=== PATIENT | female | born 1960 | race African-American/Black ===

== ENCOUNTER 2017-11-08 17:51 | Emergency (ER) | payer OTHER | END 2017-11-08 20:17 | disposition home or self-care (01) | LOC: ER 17:51 | DX: J20.9 Acute bronchitis, unspecified (principal); J39.9 Disease of upper respiratory tract, unspecified; E78.00 Pure hypercholesterolemia, unspecified | CPT/HCPCS: 71046; 99284 ==

== ENCOUNTER 2020-06-24 14:23 | Observation (INO) | payer SELFPAY ==
[~2020-06-24] VITALS: Ht 172.7 cm; Wt 70.0 kg
[~2020-06-24 14:23] MED LIST: AMLO5TAB10 PO; AZIT250T PO; BENZ100C PO; PRED50TA PO; PROAIR RESPICL90 MCG IH
[2020-06-24] MEDS ORDERED: ASPIRIN 325 MG TABLET PO ONE (15:15)
[2020-06-24 15:16] LABS: BASO # 0.2 x10^3/uL (0.0-0.2); BASO % 3 % (0-3); EOS # 0.1 x10^3/uL (0.0-0.7); EOS % 1 % (0-3); HEMATOCRIT 34.3 % (36.0-47.0); HEMOGLOBIN 11.6 g/dL (12.0-15.5); LYMPH # 2.4 x10^3/uL (1.0-4.8); LYMPH % 38 % (24-48); MEAN CORPUSCULAR HEMOGLOBIN 31 pg (25-35); MEAN CORPUSCULAR HGB CONC 34 g/dL (31-37); MEAN CORPUSCULAR VOLUME 92 fL (79-100); MONO # 0.3 x10^3/uL (0.0-1.1); MONO % 5 % (0-9); NEUT # 3.4 x10^3/uL (1.8-7.7); NEUT % 54 % (31-73); PLATELET COUNT 146 x10^3/uL (140-400); RED BLOOD COUNT 3.73 x10^6/uL (3.50-5.40); RED CELL DISTRIBUTION WIDTH 18.7 % (11.5-14.5); WHITE BLOOD COUNT 6.3 x10^3/uL (4.0-11.0)
[2020-06-24 15:19] LABS: PROTHROMBIN TIME PATIENT 13.4 SEC (11.7-14.0)
[2020-06-24 15:22] LABS: D-DIMER 0.45 ug/mlFEU (0.00-0.50)
[2020-06-24 15:25] LABS: CALCIUM 9.4 mg/dL (8.5-10.1); GFR 68.9
[2020-06-24 15:28] LABS: ALBUMIN 3.9 g/dL (3.4-5.0); ALBUMIN/GLOBULIN RATIO 1.1 (1.0-1.7); MAGNESIUM 2.1 mg/dL (1.8-2.4); TOTAL BILIRUBIN 0.2 mg/dL (0.2-1.0); TOTAL PROTEIN 7.5 g/dL (6.4-8.2)
[2020-06-24 15:38] LABS: CREATINE KINASE 73 U/L (26-192)
[2020-06-24 15:49] LABS: PLT ESTIMATE ADEQUATE (ADEQUATE)
[2020-06-24 15:50] LABS: POLYCHROMASIA SLIGHT; SCHISTOCYTES OCC
[2020-06-24 15:52] LABS: ANISOCYTOSIS SLIGHT
--- NOTE | 2020-06-24 15:52 | RAD ---
Chest AP portable at 1456: Reason for examination: Chest pain. Comparison is made to previous study dated 11/08/2017. The heart size is normal. Mediastinum is unremarkable. Lung ramesh are clear. No acute bony abnormalities are seen. Impression: No acute cardiopulmonary disease. Electronically signed by: Jaz Horner MD (06/24/2020 3:49 PM) TAMMI
--- NOTE | 2020-06-24 16:00 | PHYS DOC ---
Past Medical History Past Medical History: High Cholesterol, Hypertension, Sinusitis Additional Past Medical Histor: "SINUS PROBLEMS" NH Past Surgical History: Tubal ligation Smoking Status: Former Smoker Alcohol Use: None Drug Use: None General Adult EDM: Chief Complaint: CHEST PAIN HPI: HPI: Patient is a 60 year old AA female who presents to the emergency department wit h complaints of left-sided chest pain that began approximately 8:00 this morning. She currently denies any pain at this time. She reports a history of a previous NH. Patient states that when the pain was present it felt like a aching pain that radiated to the left side of her neck. She denies any shortness of breath, diaphoresis, nausea, vomiting, abdominal pain, wheezing, fever, dizziness, headache, numbness, tingling, weakness, or back pain. Patient reports that when she had the pain that was a 8 out of 10 on the pain scale, she denied any alleviating or exacerbating factors. Review of Systems: Review of Systems: Constitutional: Denies fever or chills. [] HENT: Denies nasal congestion or sore throat. [] Respiratory: Denies cough or shortness of breath. [] Cardiovascular: See HPI GI: Denies abdominal pain, nausea, vomiting, or diarrhea. [] Musculoskeletal: Denies back pain, edema, or joint pain. [] Integument: Denies rash. [] Neurologic: Denies headache, focal weakness or sensory changes. [] Psychiatric: Denies depression or anxiety. [] Heart Score: HEART Score for Chest Pain: HEART Score for Chest Pain Response (Comments) Value History Slighlty/Non-Suspicious 0 ECG Nonspecific Repolarizatio 1 Age >45 - < 65 1 Risk Factors >3 Risk Factors or Hx CAD 2 Troponin < Normal Limit 0 Total 4 Risk Factors: Risk Factors: DM, Current or recent (<one month) smoker, HTN, HLP, family history of CAD, obesity. Risk Scores: Score 0 - 3: 2.5% MACE over next 6 weeks - Discharge Home Score 4 - 6: 20.3% MACE over next 6 weeks - Admit for Clinical Observation Score 7 - 10: 72.7% MACE over next 6 weeks - Early Invasive Strategies Current Medications: Current Medications Medications (Trade) Dose Ordered Sig/[facility] Start Time Stop Time Status Last Admin Dose Admin Aspirin (Jb Aspirin) 325 mg 1X ONCE 06/24/20 15:15 06/24/20 15:16 DC 06/24/20 15:33 325 MG Allergies: Allergies: Allergies Coded Allergies Type Severity Reaction Last Updated Verified No Known Drug Allergies 06/20/15 No Physical Exam: PE: Constitutional: Well developed, well nourished, no acute distress, non-toxic appearance. [] HENT: Normocephalic, atraumatic, bilateral external ears normal, nose normal. [] Eyes: PERRLA, EOMI, conjunctiva normal, no discharge. [] Neck: Normal range of motion, no stridor. [] Cardiovascular:Heart rate regular rhythm, no murmur [] Lungs & Thorax: Bilateral breath sounds clear to auscultation, Respirations even and unlabored, no retractions, no respiratory distress [] Abdomen: soft, no tenderness Skin: Warm, dry, no erythema, no rash. [] Back: No tenderness Extremities: No cyanosis, ROM intact, no edema. [] Neurologic: Alert and oriented X 3, normal motor function, normal sensory function, no focal deficits noted. [] Psychologic: Affect normal, judgement normal, mood normal. [] Current Patient Data: Labs: Laboratory Tests Test 06/24/20 15:00 White Blood Count 6.3 x10^3/uL (4.0-11.0) Red Blood Count 3.73 x10^6/uL (3.50-5.40) Hemoglobin 11.6 g/dL (12.0-15.5) L Hematocrit 34.3 % (36.0-47.0) L Mean Corpuscular Volume 92 fL (79-100) Mean Corpuscular Hemoglobin 31 pg (25-35) Mean Corpuscular Hemoglobin Concent 34 g/dL (31-37) Red Cell Distribution Width 18.7 % (11.5-14.5) H Platelet Count 146 x10^3/uL (140-400) Neutrophils (%) (Auto) 54 % (31-73) Lymphocytes (%) (Auto) 38 % (24-48) Monocytes (%) (Auto) 5 % (0-9) Eosinophils (%) (Auto) 1 % (0-3) Basophils (%) (Auto) 3 % (0-3) Neutrophils # (Auto) 3.4 x10^3/uL (1.8-7.7) Lymphocytes # (Auto) 2.4 x10^3/uL (1.0-4.8) Monocytes # (Auto) 0.3 x10^3/uL (0.0-1.1) Eosinophils # (Auto) 0.1 x10^3/uL (0.0-0.7) Basophils # (Auto) 0.2 x10^3/uL (0.0-0.2) Platelet Estimate Adequate (ADEQUATE) Polychromasia Slight Anisocytosis Slight Schistocytes Occ Prothrombin Time 13.4 SEC (11.7-14.0) Prothrombin Time INR 1.1 (0.8-1.1) Activated Partial Thromboplast Time 33 SEC (24-38) D-Dimer (Monae) 0.45 ug/mlFEU (0.00-0.50) Sodium Level 139 mmol/L (136-145) Potassium Level 4.0 mmol/L (3.5-5.1) Chloride Level 105 mmol/L (98-107) Carbon Dioxide Level 25 mmol/L (21-32) Anion Gap 9 (6-14) Blood Urea Nitrogen 13 mg/dL (7-20) Creatinine 1.0 mg/dL (0.6-1.0) Estimated GFR (Cockcroft-Gault) 68.9 BUN/Creatinine Ratio 13 (6-20) Glucose Level 91 mg/dL (70-99) Calcium Level 9.4 mg/dL (8.5-10.1) Magnesium Level 2.1 mg/dL (1.8-2.4) Total Bilirubin 0.2 mg/dL (0.2-1.0) Aspartate Amino Transferase (AST) 18 U/L (15-37) Alanine Aminotransferase (ALT) 21 U/L (14-59) Alkaline Phosphatase 79 U/L (46-116) Creatine Kinase 73 U/L (26-192) Creatine Kinase MB (Mass) < 0.5 ng/mL (0.0-3.6) Creatine Kinase MB Relative Index % (0-4) Troponin I Quantitative < 0.017 ng/mL (0.000-0.055) QT-Sbg-Z-Type Natriuretic Peptide 32 pg/mL (0-124) Total Protein 7.5 g/dL (6.4-8.2) Albumin 3.9 g/dL (3.4-5.0) Albumin/Globulin Ratio 1.1 (1.0-1.7) Lipase 79 U/L (73-393) Laboratory Tests 06/24/20 15:00 Laboratory Tests 06/24/20 15:00 EKG: EK- SR rate 97, no STEMI read by Dr. Montejo[] Radiology/Procedures: Radiology/Procedures: PROCEDURE: CHEST AP ONLY Chest AP portable at 1456: Reason for examination: Chest pain. Comparison is made to previous study dated 11/08/2017. The heart size is normal. Mediastinum is unremarkable. Lung ramesh are clear. No acute bony abnormalities are seen. Impression: No acute cardiopulmonary disease. [] Course & Med Decision Making: Course & Med Decision Making Pertinent Labs and Imaging studies reviewed. (See chart for details) [id number]-spoke with Dr. Quiroz who is the admitting physician, and care was assumed following discussion of patient. Will admit patient as chest pain observation to [facility] Patient's vital signs stable. Patient remains afebrile, appears nontoxic, respirations even and unlabored. Patient will be admitted to the [facility] floor. Patient's case and plan of care also discussed with Dr. Montejo [] Dragomaira Disclaimer: Thania Disclaimer: This electronic medical record was generated, in whole or in part, using a voice recognition dictation system. Departure Departure Impression: Primary Impression: Chest pain Qualified Codes: R07.9 - Chest pain, unspecified Disposition: ADMITTED INPATIENT Admitting Physician: VENUS (Richie) Condition: STABLE Referrals: YESSICA MEJIA MD (PCP) Justicifation of Admission Dx: Justifications for Admission: Justification of Admission Dx: Yes Angina: New-Onset ROQUE ESTES PATIENT CARE MANAGER Jun 24, 2020 16:00
[2020-06-24 16:19] LABS: BILIRUBIN,URINE NEGATIVE (NEG); CLARITY,URINE CLEAR; NITRITE,URINE NEGATIVE (NEG); PROTEIN,URINE NEGATIVE (NEG-TRACE); UROBILINOGEN,URINE 0.2 mg/dL (0.2 mg/dL)
[2020-06-24 16:23] LABS: COLOR,URINE STRAW
[2020-06-24 16:24] LABS: BACTERIA,URINE 0 /HPF (0-FEW); RBC,URINE 0 /HPF (0-2); SQUAMOUS EPITHELIAL CELL,UR FEW /LPF; WBC,URINE 0 /HPF (0-4)
--- NOTE | 2020-06-24 16:59 | PDOC1 ---
History and Physical Date of Admission Date of Admission DATE: 06/24/20 TIME: 16:56 Identification/Chief Complaint Chief Complaint Chest pain Source Source: Patient History of Present Illness History of Present Illness Ms Chung is a 60 yo F w/ PMHx HTN, HLD, smoker who presents to the ED complaining of sudden onset substernal chest pressure that began this morning while she was at rest. She does note associated abdominal fullness and belching and some vague nausea. Pain does not radiate it is dull and rated 6 out of 10. It comes and goes. She does note she has had early satiety recently. She also notes on further review of systems she has had some left hip and groin pain and some intermittent numbness in her left thigh as well as polyuria and polydipsia over the past few weeks. She has had a lot of anxiety and been sleeping poorly for the past 5 months and she also started smoking again 5 months ago she smokes 1/2 pack/day. Chest x-ray reviewed with no acute abnormalities. EKG normal sinus rhythm. Labs including CBC CMP were within normal limits. Troponin was undetectable. Of note she had similar symptoms 09/18/2016 and underwent a cardiac catheterization where she was found with normal ejection fraction and normal left main coronary artery with torturous LAD circumflex was normal and her RCA was dominant with no abnormalities no interventions were performed. Due to her age and risk factors she will be admitted for observation and further treatment. Past Medical History Cardiovascular: HTN, Hyperlipidemia Past Surgical History Past Surgical History: Tubal Ligation Family History Family History: High Cholestrol, Hypertension Social History Smoke: <1 pack per day ALCOHOL: rare Drugs: None Current Medications Current Medications Current Medications Aspirin (Jb Aspirin) 325 mg 1X ONCE PO Last administered on 06/24/20at 15:33; Start 06/24/20 at 15:15; Stop 06/24/20 at 15:16; Status DC Active Scripts Active Zithromax (Azithromycin) 250 Mg Tablet 1 Pkg PO UD Tessalon Perle (Benzonatate) 100 Mg Capsule 1 Cap PO TID Prednisone 50 Mg Tablet 1 Tab PO DAILY Proair Respiclick (Albuterol Sulfate) 90 Mcg Aer.pow.ba 1 Puff IH PRN Q6HRS PRN Reported Amlodipine Besylate 5 Mg Tablet 5 Mg PO DAILY Amlodipine Besylate 5 Mg Tablet 5 Mg PO DAILY 30 Days Allergies Allergies: Coded Allergies: No Known Drug Allergies (Unverified , 06/20/15) ROS General: YES: Fatigue, Malaise; No: Chills, Night Sweats, Appetite, Other PSYCHOLOGICAL ROS: YES: Anxiety; No: Behavioral Disorder, Concentration difficultie, Decreased libido, Depression, Disorientation, Hallucinations, Hostility, Irritablity, Memory difficulties, Mood Swings, Obsessive thoughts, Physical abuse, Sexual abuse, Sleep disturbances, Suicidal ideation, Other Eyes: No Blurry vision, No Decreased vision, No Double vision, No Dry eyes, No Excessive tearing, No Eye Pain, No Itchy Eyes, No Loss of vision, No Photophobia, No Scotomata, No Uses contacts, No Uses glasses, No Other HEENT: No: Heacaches, Visual Changes, Hearing change, Nasal congestion, Nasal discharge, Oral lesions, Sinus pain, Sore Throat, Epistaxis, Sneezing, Snoring, Tinnitus, Vertigo, Vocal changes, Other ALLERGY AND IMMUNOLOGY: No: Hives, Insect Bite Sensitivity, Itchy/Watery Eyes, Nasal Congestion, Post Nasal Drip, Seasonal Allergies, Other Hematological and Lymphatic: No: Bleeding Problems, Blood Clots, Blood Transfusions, Brusing, Night Sweats, Pallor, Swollen Lymph Nodes, Other ENDOCRINE: YES: Malaise/lethargy, Polydipsia/polyuria; No: Breast Changes, Galactorrhea, Hair Pattern Changes, Hot Flashes, Mood Swings, Palpitations, Skin Changes, Temperature Intolerance, Unexpected Weight Changes, Other Breast: No New/Changing Breast Lumps, No Nipple changes, No Nipple discharge, No Other Respiratory: No: Cough, Hemoptysis, Orthopnea, Pleuritic Pain, Shortness of breath, SOB with excertion, Sputum Changes, Stridor, Tachypnea, Wheezing, Other Cardiovascular: yes Chest Pain; No Palpitations, No Orthopnea, No Paroxysmal Noc. Dyspnea, No Edema, No Lt Headedness, No Other Gastrointestinal: Yes Nausea, Yes Abdominal Pain; No Vomiting, No Diarrhea, No Constipation, No Melena, No Hematochezia, No Other Genitourinary: YES Frequency; No Dysuria, No Incontinence, No Hematuria, No Retention, No Discharge, No Urgency, No Pain, No Flank Pain, No Other, No , No , No , No , No , No , No Musculoskeletal: Yes Joint Pain; No Gait Disturbance, No Joint Stiffness, No Joint Swelling, No Muscle Pain, No Muscular Weakness, No Pain In:, No Swelling In:, No Other Neurological: No Behavorial Changes, No Bowel/Bladder ControlChng, No Confusion, No Dizziness, No Gait Disturbance, No Headaches, No Impaired Coord/balance, No Memory Loss, No Numbness/Tingling, No Seizures, No Speech P roblems, No Tremors, No Visual Changes, No Weakness, No Other Physical Exam General: Alert, Oriented X3, Cooperative, mild distress HEENT: Atraumatic, PERRLA, EOMI, Mucous membr. moist/pink Lungs: Clear to auscultation, Normal air movement Heart: S1S2, RRR, no thrills, no rubs, no gallops, no murmurs Abdomen: Normal bowel sounds, Soft, No hepatosplenomegaly, No masses, Other (epigastric tenderness) Rectal Exam: not examined Extremities: No clubbing, No cyanosis, No edema, Normal pulses, Other (left greater trochanteric bursa painful to palpation) Skin: No rashes, No breakdown, No significant lesion Neuro: Normal gait, Normal speech, Strength at 5/5 X4 ext, Normal tone, Sensation intact, Cranial nerves 3-12 NL, Reflexes 2+ Psych/Mental Status: Mental status NL, Mood NL Vitals Vitals Vital Signs Date Time Temp Pulse Resp B/P (MAP) Pulse Ox O2 Delivery O2 Flow Rate FiO2 06/24/20 15:30 99.1 97 18 149/68 (95) 97 Room Air 99.1 Labs Labs Laboratory Tests Test 06/24/20 15:00 06/24/20 16:07 White Blood Count 6.3 x10^3/uL (4.0-11.0) Red Blood Count 3.73 x10^6/uL (3.50-5.40) Hemoglobin 11.6 g/dL (12.0-15.5) Hematocrit 34.3 % (36.0-47.0) Mean Corpuscular Volume 92 fL (79-100) Mean Corpuscular Hemoglobin 31 pg (25-35) Mean Corpuscular Hemoglobin Concent 34 g/dL (31-37) Red Cell Distribution Width 18.7 % (11.5-14.5) Platelet Count 146 x10^3/uL (140-400) Neutrophils (%) (Auto) 54 % (31-73) Lymphocytes (%) (Auto) 38 % (24-48) Monocytes (%) (Auto) 5 % (0-9) Eosinophils (%) (Auto) 1 % (0-3) Basophils (%) (Auto) 3 % (0-3) Neutrophils # (Auto) 3.4 x10^3/uL (1.8-7.7) Lymphocytes # (Auto) 2.4 x10^3/uL (1.0-4.8) Monocytes # (Auto) 0.3 x10^3/uL (0.0-1.1) Eosinophils # (Auto) 0.1 x10^3/uL (0.0-0.7) Basophils # (Auto) 0.2 x10^3/uL (0.0-0.2) Platelet Estimate Adequate (ADEQUATE) Polychromasia Slight Anisocytosis Slight Schistocytes Occ Prothrombin Time 13.4 SEC (11.7-14.0) Prothromb Time International Ratio 1.1 (0.8-1.1) Activated Partial Thromboplast Time 33 SEC (24-38) D-Dimer (Monae) 0.45 ug/mlFEU (0.00-0.50) Sodium Level 139 mmol/L (136-145) Potassium Level 4.0 mmol/L (3.5-5.1) Chloride Level 105 mmol/L (98-107) Carbon Dioxide Level 25 mmol/L (21-32) Anion Gap 9 (6-14) Blood Urea Nitrogen 13 mg/dL (7-20) Creatinine 1.0 mg/dL (0.6-1.0) Estimated GFR (Cockcroft-Gault) 68.9 BUN/Creatinine Ratio 13 (6-20) Glucose Level 91 mg/dL (70-99) Calcium Level 9.4 mg/dL (8.5-10.1) Magnesium Level 2.1 mg/dL (1.8-2.4) Total Bilirubin 0.2 mg/dL (0.2-1.0) Aspartate Amino Transf (AST/SGOT) 18 U/L (15-37) Alanine Aminotransferase (ALT/SGPT) 21 U/L (14-59) Alkaline Phosphatase 79 U/L (46-116) Creatine Kinase 73 U/L (26-192) Creatine Kinase MB (Mass) < 0.5 ng/mL (0.0-3.6) Creatine Kinase MB Relative Index % (0-4) Troponin I Quantitative < 0.017 ng/mL (0.000-0.055) BS-Ibs-U-Type Natriuretic Peptide 32 pg/mL (0-124) Total Protein 7.5 g/dL (6.4-8.2) Albumin 3.9 g/dL (3.4-5.0) Albumin/Globulin Ratio 1.1 (1.0-1.7) Lipase 79 U/L (73-393) Urine Collection Type Unknown Urine Color Straw Urine Clarity Clear Urine pH 6.0 (<5.0-8.0) Urine Specific Cecil <=1.005 (1.000-1.030) Urine Protein Negative mg/dL (NEG-TRACE) Urine Glucose (UA) Negative mg/dL (NEG) Urine Ketones (Stick) Negative mg/dL (NEG) Urine Blood Negative (NEG) Urine Nitrite Negative (NEG) Urine Bilirubin Negative (NEG) Urine Urobilinogen Dipstick 0.2 mg/dL (0.2 mg/dL) Urine Leukocyte Esterase Negative (NEG) Urine RBC 0 /HPF (0-2) Urine WBC 0 /HPF (0-4) Urine Squamous Epithelial Cells Few /LPF Urine Bacteria 0 /HPF (0-FEW) Laboratory Tests Test 06/24/20 15:00 06/24/20 16:07 White Blood Count 6.3 x10^3/uL (4.0-11.0) Red Blood Count 3.73 x10^6/uL (3.50-5.40) Hemoglobin 11.6 g/dL (12.0-15.5) Hematocrit 34.3 % (36.0-47.0) Mean Corpuscular Volume 92 fL (79-100) Mean Corpuscular Hemoglobin 31 pg (25-35) Mean Corpuscular Hemoglobin Concent 34 g/dL (31-37) Red Cell Distribution Width 18.7 % (11.5-14.5) Platelet Count 146 x10^3/uL (140-400) Neutrophils (%) (Auto) 54 % (31-73) Lymphocytes (%) (Auto) 38 % (24-48) Monocytes (%) (Auto) 5 % (0-9) Eosinophils (%) (Auto) 1 % (0-3) Basophils (%) (Auto) 3 % (0-3) Neutrophils # (Auto) 3.4 x10^3/uL (1.8-7.7) Lymphocytes # (Auto) 2.4 x10^3/uL (1.0-4.8) Monocytes # (Auto) 0.3 x10^3/uL (0.0-1.1) Eosinophils # (Auto) 0.1 x10^3/uL (0.0-0.7) Basophils # (Auto) 0.2 x10^3/uL (0.0-0.2) Platelet Estimate Adequate (ADEQUATE) Polychromasia Slight Anisocytosis Slight Schistocytes Occ Prothrombin Time 13.4 SEC (11.7-14.0) Prothromb Time International Ratio 1.1 (0.8-1.1) Activated Partial Thromboplast Time 33 SEC (24-38) D-Dimer (Monae) 0.45 ug/mlFEU (0.00-0.50) Sodium Level 139 mmol/L (136-145) Potassium Level 4.0 mmol/L (3.5-5.1) Chloride Level 105 mmol/L (98-107) Carbon Dioxide Level 25 mmol/L (21-32) Anion Gap 9 (6-14) Blood Urea Nitrogen 13 mg/dL (7-20) Creatinine 1.0 mg/dL (0.6-1.0) Estimated GFR (Cockcroft-Gault) 68.9 BUN/Creatinine Ratio 13 (6-20) Glucose Level 91 mg/dL (70-99) Calcium Level 9.4 mg/dL (8.5-10.1) Magnesium Level 2.1 mg/dL (1.8-2.4) Total Bilirubin 0.2 mg/dL (0.2-1.0) Aspartate Amino Transf (AST/SGOT) 18 U/L (15-37) Alanine Aminotransferase (ALT/SGPT) 21 U/L (14-59) Alkaline Phosphatase 79 U/L (46-116) Creatine Kinase 73 U/L (26-192) Creatine Kinase MB (Mass) < 0.5 ng/mL (0.0-3.6) Creatine Kinase MB Relative Index % (0-4) Troponin I Quantitative < 0.017 ng/mL (0.000-0.055) CQ-Zec-Z-Type Natriuretic Peptide 32 pg/mL (0-124) Total Protein 7.5 g/dL (6.4-8.2) Albumin 3.9 g/dL (3.4-5.0) Albumin/Globulin Ratio 1.1 (1.0-1.7) Lipase 79 U/L (73-393) Urine Collection Type Unknown Urine Color Straw Urine Clarity Clear Urine pH 6.0 (<5.0-8.0) Urine Specific Cecil <=1.005 (1.000-1.030) Urine Protein Negative mg/dL (NEG-TRACE) Urine Glucose (UA) Negative mg/dL (NEG) Urine Ketones (Stick) Negative mg/dL (NEG) Urine Blood Negative (NEG) Urine Nitrite Negative (NEG) Urine Bilirubin Negative (NEG) Urine Urobilinogen Dipstick 0.2 mg/dL (0.2 mg/dL) Urine Leukocyte Esterase Negative (NEG) Urine RBC 0 /HPF (0-2) Urine WBC 0 /HPF (0-4) Urine Squamous Epithelial Cells Few /LPF Urine Bacteria 0 /HPF (0-FEW) Images Images CXR: The heart size is normal. Mediastinum is unremarkable. Lung ramesh are clear. No acute bony abnormalities are seen. Impression: No acute cardiopulmonary disease. VTE Prophylaxis Ordered VTE Prophylaxis Devices: Yes VTE Pharmacological Prophylaxi: No Assessment/Plan Assessment/Plan A/P: Chest pain - atypical given no relief with rest. Does seem more gastritis/PUD related. Telemetry, trend troponins, ASA, NTG prn, GI cocktail. Cardiology consulted Epigastric and RUQ pain - will obtain RUQ US to r/o gallstones Left hip pain - will obtain XR to assess for OA, advised to wear looser fitting pants given the meralgia paraethetica symptoms on the left HTN - will cont home amlodipine Smoker - counseled on cessation Polyuria and polydipsia - will check A1c. TSH is WNL FEN - Cardiac diet PPX - ambulatory FULL CODE Dispo - observation for chest pain Justifications for Admission Other Justification SUE NICHOLSON MD Jun 24, 2020 16:59
[2020-06-24] MEDS ORDERED: LIDO:MAALOX 1:1 20 ML SINGLE DOSE. SWSW ONE (18:00)
--- NOTE | 2020-06-24 19:17 | RAD ---
Ultrasound of the right upper quadrant of the abdomen 06/24/2020 CLINICAL HISTORY: Epigastric pain. Right upper quadrant abdominal pain. TECHNIQUE: A real-time ultrasound examination of the right upper quadrant of the abdomen was performed. Multiple images were obtained. FINDINGS: The gallbladder is well-distended. No gallstones are visualized. The gallbladder wall thickness is within normal limits. No pericholecystic fluid is seen. The common bile duct measures 4 mm in diameter which is within normal limits. The liver is normal in size measuring 13.8 cm in length. No focal abnormality of liver is seen. The visualized portions of pancreas and right kidney are within normal limits. No free fluid is seen. IMPRESSION: Negative study. Electronically signed by: Arcadio Galo MD (06/24/2020 7:14 PM) [id number]
[2020-06-24] MEDS ORDERED: ZOLPIDEM 5 MG TABLET. PO PRN (20:15)
[2020-06-24 20:33] VITALS: BP 124/57
[2020-06-24] MEDS ORDERED: NITROGLYCERIN SUBLINGUAL 0.4 MG BOTTLE OF 25. SL PRN (21:00)
[2020-06-24] MEDS ORDERED: ONDANSETRON PF 4 MG/2 ML VIAL. IVP PRN (21:00)
[2020-06-24 22:06] VITALS: BP 102/49
[2020-06-24] MEDS: ACETAMINOPHEN 325 MG TABLET. PO PRN (22:36)
--- NOTE | 2020-06-24 23:57 | RAD ---
INDICATION: Reason: Groin pain, concern for OA / Spl. Instructions: / History: COMPARISON: None. IMPRESSION: Left hip: Single view obtained. No evidence of fracture or dislocation. There is some osteophyte formation which can be seen with degenerative changes. Electronically signed by: Isaac Orlando MD (06/24/2020 11:54 PM) [id number]
[2020-06-25 01:36] LABS: CHOLESTEROL/HDL RATIO 5.6
[2020-06-25 03:45] VITALS: BP 136/68
[2020-06-25] MEDS ORDERED: CETI10TA74 PO (05:22)
[2020-06-25] MEDS ORDERED: ASPI-630 PO (05:22)
[2020-06-25 07:00] VITALS: BP 121/44
[2020-06-25] MEDS: ACETAMINOPHEN 325 MG TABLET. PO PRN (07:16)
--- NOTE | 2020-06-25 07:35 | EKG ---
[facility] [address] [place] [address] Test Date: 2020-06-24 Test Time: 14:30:50 Pat Name: VADIM BAL Department: Room: Gender: F [employer]: : 1960 Requested By: ROQUE ESTES Order Number: [id number] Reading MD: Measurements Intervals Kersey Rate: 97 P: 47 FL: 110 QRS: 52 QRSD: 72 T: 38 QT: 338 QTc: 433 Interpretive Statements SINUS RHYTHM NO SPECIFIC ECG ABNORMALITIES RI6.02 No previous ECG available for comparison
[2020-06-25] MEDS ORDERED: ASPIRIN 325 MG TABLET PO SCH (08:00)
[2020-06-25] MEDS ORDERED: amLODIPine BESYLATE 10 MG TABLET PO SCH (09:00)
[2020-06-25] MEDS ORDERED: amLODIPine BESYLATE 5 MG TABLET PO SCH (09:00)
--- NOTE | 2020-06-25 09:04 | PDOC2 ---
CARDIAC CONSULT DATE OF CONSULT Date of Consult DATE: 06/25/20 TIME: 09:00 REASON FOR CONSULT Reason for Consult: Chest pain REFERRING PHYSICIAN Referring Physician: Nestor SOURCE Source: Chart review, Patient HISTORY OF PRESENT ILLNESS HISTORY OF PRESENT ILLNESS This is a pleasant 60 yo female admitted for complaisn of back pain and chest pain. Reports that she has been having this left lower back pain and it hurts with positional changes and sends shooting pain to her left leg. She also woke up yesterday with some fullness in her chest described as pressure midsternal from in to out. No radiation. Repors increasing belching and bloating,. also at night and upon waking up in morning feels nasal congestion and fullness in her head and also sourness in the back of her throat. Denies any PUD but has been taking Gas X lately. Reports has been taking 800 mg of ibuprofen because of her back at least every other day. She also takes baby ASA. She takes norvasc for her HTN and has been controlled. She smokes tobacco and also ate taco last night. No recent falls or injury. No ARIAS and no exertional CP and no changes to her functional capacity. She had a LHC in 2016 due to elevated troponin but this was nonischemic related with her LHC noted with no CAD. No hx of VTE and no hx of arrhythmias. No diaphoresis or palpitations. To add she has been feeling that her food when swallowing feels that it doesnot go down well and feel some midsternal fulness upon swallowing. PAST MEDICAL HISTORY Cardiovascular: HTN, Hyperlipidemia Pulmonary: Asthma, Bronchitis CENTRAL NERVOUS SYSTEM: Other (No pertinent history) GI: No pertinent hx Heme/Onc: No pertinent hx Hepatobiliary: No pertinent hx Psych: No pertinent hx Musculoskeletal: Osteoarthritis Rheumatologic: No pertinent hx Infectious disease: No pertinent hx ENT: No pertinent hx Renal/: No pertinent hx Endocrine: No pertinent hx Dermatology: No pertinent hx PAST SURGICAL HISTORY Past Surgical History: Tubal Ligation FAMILY HISTORY Family History: Hypertension SOCIAL HISTORY Smoke: <1 pack per day ALCOHOL: none Drugs: None Lives: with Family CURRENT MEDICATIONS CURRENT MEDICATIONS Current Medications Medications (Trade) Dose Ordered Sig/[place] Route PRN Reason Start Time Stop Time Status Last Admin Dose Admin Aspirin (Jb Aspirin) 325 mg 1X ONCE PO 06/24/20 15:15 9/1/20 15:16 DC 06/24/20 15:33 Zolpidem Tartrate (Ambien) 5 mg PRN QHS PRN PO INSOMNIA 06/24/20 20:15 06/24/20 22:36 Acetaminophen (Tylenol) 650 mg PRN Q6HRS PRN PO MILD PAIN / TEMP > 100.3'F 06/24/20 21:00 06/25/20 07:16 ALLERGIES ALLERGIES: Coded Allergies: No Known Drug Allergies (Unverified , 06/20/15) ROS Review of System 14 point ROS evaluated with pertinent positives noted per HPI PHYSICAL EXAM General: Alert, Oriented X3, Cooperative, No acute distress HEENT: Atraumatic, Mucous membr. moist/pink Lungs: Clear to auscultation, Normal air movement Heart: Regular rate (SR), Normal S1, Normal S2, No murmurs Abdomen: Soft, No tenderness Extremities: No cyanosis, No edema Skin: No breakdown, No significant lesion Neuro: Normal speech, Sensation intact Psych/Mental Status: Mental status NL, Mood NL MUSCULOSKELETAL: Osteoarthritic changes both hands VITALS/I&O VITALS/I&O: Vital Signs Date Time Temp Pulse Resp B/P (MAP) Pulse Ox O2 Delivery O2 Flow Rate FiO2 06/25/20 08:00 Room Air 06/25/20 07:00 98.1 59 16 121/44 (69) 97 98.1 I & O 06/24/20 06/24/20 06/25/20 15:00 23:00 07:00 Intake Total 240 ml 200 ml Balance 240 ml 200 ml LABS Lab: Laboratory Tests Test 06/24/20 15:00 06/24/20 16:07 06/24/20 19:45 06/25/20 00:15 White Blood Count 6.3 x10^3/uL (4.0-11.0) Red Blood Count 3.73 x10^6/uL (3.50-5.40) Hemoglobin 11.6 g/dL (12.0-15.5) L Hematocrit 34.3 % (36.0-47.0) L Mean Corpuscular Volume 92 fL (79-100) Mean Corpuscular Hemoglobin 31 pg (25-35) Mean Corpuscular Hemoglobin Concent 34 g/dL (31-37) Red Cell Distribution Width 18.7 % (11.5-14.5) H Platelet Count 146 x10^3/uL (140-400) Neutrophils (%) (Auto) 54 % (31-73) Lymphocytes (%) (Auto) 38 % (24-48) Monocytes (%) (Auto) 5 % (0-9) Eosinophils (%) (Auto) 1 % (0-3) Basophils (%) (Auto) 3 % (0-3) Neutrophils # (Auto) 3.4 x10^3/uL (1.8-7.7) Lymphocytes # (Auto) 2.4 x10^3/uL (1.0-4.8) Monocytes # (Auto) 0.3 x10^3/uL (0.0-1.1) Eosinophils # (Auto) 0.1 x10^3/uL (0.0-0.7) Basophils # (Auto) 0.2 x10^3/uL (0.0-0.2) Platelet Estimate Adequate (ADEQUATE) Polychromasia Slight Anisocytosis Slight Schistocytes Occ Prothrombin Time 13.4 SEC (11.7-14.0) Prothrombin Time INR 1.1 (0.8-1.1) Activated Partial Thromboplast Time 33 SEC (24-38) D-Dimer (Monae) 0.45 ug/mlFEU (0.00-0.50) Sodium Level 139 mmol/L (136-145) Potassium Level 4.0 mmol/L (3.5-5.1) Chloride Level 105 mmol/L (98-107) Carbon Dioxide Level 25 mmol/L (21-32) Anion Gap 9 (6-14) Blood Urea Nitrogen 13 mg/dL (7-20) Creatinine 1.0 mg/dL (0.6-1.0) Estimated GFR (Cockcroft-Gault) 68.9 BUN/Creatinine Ratio 13 (6-20) Glucose Level 91 mg/dL (70-99) Calcium Level 9.4 mg/dL (8.5-10.1) Magnesium Level 2.1 mg/dL (1.8-2.4) Total Bilirubin 0.2 mg/dL (0.2-1.0) Aspartate Amino Transferase (AST) 18 U/L (15-37) Alanine Aminotransferase (ALT) 21 U/L (14-59) Alkaline Phosphatase 79 U/L (46-116) Creatine Kinase 73 U/L (26-192) Creatine Kinase MB (Mass) < 0.5 ng/mL (0.0-3.6) Creatine Kinase MB Relative Index % (0-4) Troponin I Quantitative < 0.017 ng/mL (0.000-0.055) < 0.017 ng/mL (0.000-0.055) < 0.017 ng/mL (0.000-0.055) QF-Nku-V-Type Natriuretic Peptide 32 pg/mL (0-124) Total Protein 7.5 g/dL (6.4-8.2) Albumin 3.9 g/dL (3.4-5.0) Albumin/Globulin Ratio 1.1 (1.0-1.7) Lipase 79 U/L (73-393) Thyroid Stimulating Hormone (TSH) 1.420 uIU/mL (0.358-3.74) Urine Collection Type Unknown Urine Color Straw Urine Clarity Clear Urine pH 6.0 (<5.0-8.0) Urine Specific [place] <=1.005 (1.000-1.030) Urine Protein Negative mg/dL (NEG-TRACE) Urine Glucose (UA) Negative mg/dL (NEG) Urine Ketones (Stick) Negative mg/dL (NEG) Urine Blood Negative (NEG) Urine Nitrite Negative (NEG) Urine Bilirubin Negative (NEG) Urine Urobilinogen Dipstick 0.2 mg/dL (0.2 mg/dL) Urine Leukocyte Esterase Negative (NEG) Urine RBC 0 /HPF (0-2) Urine WBC 0 /HPF (0-4) Urine Squamous Epithelial Cells Few /LPF Urine Bacteria 0 /HPF (0-FEW) Triglycerides Level 145 mg/dL (0-150) Cholesterol Level 224 mg/dL (0-200) H LDL Cholesterol, Calculated 155 mg/dL (0-100) H VLDL Cholesterol, Calculated 29 mg/dL (0-40) Non-HDL Cholesterol Calculated 184 mg/dL (0-129) H HDL Cholesterol 40 mg/dL (40-60) Cholesterol/HDL Ratio 5.6 Test 06/25/20 08:20 Troponin I Quantitative < 0.017 ng/mL (0.000-0.055) Laboratory Tests 06/24/20 15:00 Laboratory Tests 06/24/20 15:00 ASSESSMENT/PLAN ASSESSMENT/PLAN 1. Atypical chest pain: noncardiac, due to GERD. Trops nml EKG Sr without acute changes 2. GERD exacerbation with potential stricture based on pt complaints 3. HLP 4. Tobaccoism with likely COPD 5. HTN; controlled 6. Sciatica: per PCP Recommendations 1. GERD prevention modalities. [employer] consult. Start on PPI 2. Continue home BP norvasc. May starrt on statin or do some diet modification and recheck lipids in 2 months 3. Smoking cessation and discussed decresing NSAID use and utilize tylenol instead. 4. May follow up in office if symptoms persist after GERD treatment FERMIN MOON APRN Jun 25, 2020 09:04
[2020-06-25 10:32] VITALS: BP 115/42
--- NOTE | 2020-06-25 10:41 | PDOC ---
[employer] PROGRESS NOTE Date of Service DOS: DATE: 06/25/20 TIME: 10:30 Chief Complaint Chief Complaint chest pain, lower back pain History of Present Illness History of Present Illness 06/25/2020 Pt seen and examined. Chart review. Discussed with RN and rn field case manager. Pt resting comfortably in bed, NAD. Pt claims lower back pain began 1 week ago, radiates down posterior left leg. Pt requested pain management. Pt claims has also noticed chest "tightness" that she believes might be GERD - no troponin detected on admit. Awaiting further awning spreader input. Vitals/I&O Vitals/I&O: Vital Signs Date Time Temp Pulse Resp B/P (MAP) Pulse Ox O2 Delivery O2 Flow Rate FiO2 06/25/20 08:00 Room Air 06/25/20 07:00 98.1 59 16 121/44 (69) 97 98.1 I & O 06/24/20 06/24/20 06/25/20 15:00 23:00 07:00 Intake Total 240 ml 200 ml Balance 240 ml 200 ml Physical Exam General: Alert, Oriented X3, Cooperative, mild distress Heart: Regular rate Lungs: Clear Abdomen: Normal bowel sounds, Soft, No hepatosplenomegaly, No masses, Other (epigastric tenderness) Extremities: No clubbing, No cyanosis, No edema, Normal pulses, Other (left greater trochanteric bursa painful to palpation) Skin: No rashes, No breakdown, No significant lesion Labs Labs: Laboratory Tests Test 06/24/20 15:00 06/24/20 16:07 06/24/20 19:45 06/25/20 00:15 White Blood Count 6.3 x10^3/uL (4.0-11.0) Red Blood Count 3.73 x10^6/uL (3.50-5.40) Hemoglobin 11.6 g/dL (12.0-15.5) Hematocrit 34.3 % (36.0-47.0) Mean Corpuscular Volume 92 fL (79-100) Mean Corpuscular Hemoglobin 31 pg (25-35) Mean Corpuscular Hemoglobin Concent 34 g/dL (31-37) Red Cell Distribution Width 18.7 % (11.5-14.5) Platelet Count 146 x10^3/uL (140-400) Neutrophils (%) (Auto) 54 % (31-73) Lymphocytes (%) (Auto) 38 % (24-48) Monocytes (%) (Auto) 5 % (0-9) Eosinophils (%) (Auto) 1 % (0-3) Basophils (%) (Auto) 3 % (0-3) Neutrophils # (Auto) 3.4 x10^3/uL (1.8-7.7) Lymphocytes # (Auto) 2.4 x10^3/uL (1.0-4.8) Monocytes # (Auto) 0.3 x10^3/uL (0.0-1.1) Eosinophils # (Auto) 0.1 x10^3/uL (0.0-0.7) Basophils # (Auto) 0.2 x10^3/uL (0.0-0.2) Platelet Estimate Adequate (ADEQUATE) Polychromasia Slight Anisocytosis Slight Schistocytes Occ Prothrombin Time 13.4 SEC (11.7-14.0) Prothromb Time International Ratio 1.1 (0.8-1.1) Activated Partial Thromboplast Time 33 SEC (24-38) D-Dimer (Monae) 0.45 ug/mlFEU (0.00-0.50) Sodium Level 139 mmol/L (136-145) Potassium Level 4.0 mmol/L (3.5-5.1) Chloride Level 105 mmol/L (98-107) Carbon Dioxide Level 25 mmol/L (21-32) Anion Gap 9 (6-14) Blood Urea Nitrogen 13 mg/dL (7-20) Creatinine 1.0 mg/dL (0.6-1.0) Estimated GFR (Cockcroft-Gault) 68.9 BUN/Creatinine Ratio 13 (6-20) Glucose Level 91 mg/dL (70-99) Calcium Level 9.4 mg/dL (8.5-10.1) Magnesium Level 2.1 mg/dL (1.8-2.4) Total Bilirubin 0.2 mg/dL (0.2-1.0) Aspartate Amino Transf (AST/SGOT) 18 U/L (15-37) Alanine Aminotransferase (ALT/SGPT) 21 U/L (14-59) Alkaline Phosphatase 79 U/L (46-116) Creatine Kinase 73 U/L (26-192) Creatine Kinase MB (Mass) < 0.5 ng/mL (0.0-3.6) Creatine Kinase MB Relative Index % (0-4) Troponin I Quantitative < 0.017 ng/mL (0.000-0.055) < 0.017 ng/mL (0.000-0.055) < 0.017 ng/mL (0.000-0.055) PI-Wjn-R-Type Natriuretic Peptide 32 pg/mL (0-124) Total Protein 7.5 g/dL (6.4-8.2) Albumin 3.9 g/dL (3.4-5.0) Albumin/Globulin Ratio 1.1 (1.0-1.7) Lipase 79 U/L (73-393) Thyroid Stimulating Hormone (TSH) 1.420 uIU/mL (0.358-3.74) Urine Collection Type Unknown Urine Color Straw Urine Clarity Clear Urine pH 6.0 (<5.0-8.0) Urine Specific [place] <=1.005 (1.000-1.030) Urine Protein Negative mg/dL (NEG-TRACE) Urine Glucose (UA) Negative mg/dL (NEG) Urine Ketones (Stick) Negative mg/dL (NEG) Urine Blood Negative (NEG) Urine Nitrite Negative (NEG) Urine Bilirubin Negative (NEG) Urine Urobilinogen Dipstick 0.2 mg/dL (0.2 mg/dL) Urine Leukocyte Esterase Negative (NEG) Urine RBC 0 /HPF (0-2) Urine WBC 0 /HPF (0-4) Urine Squamous Epithelial Cells Few /LPF Urine Bacteria 0 /HPF (0-FEW) Triglycerides Level 145 mg/dL (0-150) Cholesterol Level 224 mg/dL (0-200) LDL Cholesterol, Calculated 155 mg/dL (0-100) VLDL Cholesterol, Calculated 29 mg/dL (0-40) Non-HDL Cholesterol Calculated 184 mg/dL (0-129) HDL Cholesterol 40 mg/dL (40-60) Cholesterol/HDL Ratio 5.6 Test 06/25/20 08:20 Troponin I Quantitative < 0.017 ng/mL (0.000-0.055) Review of Systems Review of Systems: Pt denies weakness, pt denies NVD Assessment and Plan Assessmemt and Plan Problems Medical Problems: (1) Chest pain Status: Acute Assessment: Acute lower back pain Acute chest pain HTN Hyperlipidemia Current smoker FH CAD Plan: Plain lumbar film series Awaiting cardio consult Pain meds Home meds DVT prophylaxis Full code Hope to discharge today, if OK by cardiology Comment Review of Relevant I have reviewed the following items javier (where applicable) has been applied. Medications: Current Medications Medications (Trade) Dose Ordered Sig/[place] Route PRN Reason Start Time Stop Time Status Last Admin Dose Admin Aspirin (Jb Aspirin) 325 mg 1X ONCE PO 06/24/20 15:15 06/24/20 15:16 DC 06/24/20 15:33 Zolpidem Tartrate (Ambien) 5 mg PRN QHS PRN PO INSOMNIA 06/24/20 20:15 06/24/20 22:36 Acetaminophen (Tylenol) 650 mg PRN Q6HRS PRN PO MILD PAIN / TEMP > 100.3'F 06/24/20 21:00 06/25/20 07:16 Justifications for Admission Other Justification MARGARITA BROWN III DO Jun 25, 2020 10:41
[2020-06-25 11:20] VITALS: BP 115/42
[2020-06-25 11:33] LABS: BARBITURATES NEG (NEG); BENZODIAZEPINES NEG (NEG); CANNABINOIDS NEG (NEG); COCAINE NEG (NEG); METHADONE NEG (NEG); OPIATES NEG (NEG); PHENCYCLIDINE NEG (NEG)
[2020-06-25 11:41] LABS: AMPHETAMINE/METHAMPHETAMINE NEG (NEG)
[2020-06-25] MEDS ORDERED: PANTOPRAZOLE 40 MG TABLET.DR. PO ONE (13:00)
[2020-06-25] MEDS ORDERED: PANT40TA77 PO (13:54)
[2020-06-25] MEDS ORDERED: ATOR20TA PO (13:54)
[2020-06-25] MEDS ORDERED: HYDR-3164 PO (13:55)
--- NOTE | 2020-06-25 14:21 | RAD ---
L-spine 3 views INDICATION: Back hip and leg pain COMPARISON: Left Hip x-rays 06/24/2020 FINDINGS: Anatomic alignment. Generalized demineralization. There are 5 lumbar type vertebrae. Vertebral body heights are preserved. Mild disc loss of height at L3-L4 and to a slightly greater extent at L5-S1 are noted. No aggressive osseous lesions are seen. Visualized sacroiliac joints and hips are unremarkable. Soft tissues show arterial calcifications in abdominal aorta. IMPRESSION: Osteopenia with no fracture noted. There are mild disc degenerative changes as described but no malalignment or aggressive osseous lesions seen Electronically signed by: Elysia Rodriguez MD (06/25/2020 2:18 PM) [id number]
[2020-06-26 02:08] LABS: HEMOGLOBIN A1C 5.2 % (4.8-5.6)
[2020-06-26] MEDS ORDERED: PANTOPRAZOLE 40 MG TABLET.DR. PO SCH (07:30)
--- NOTE | 2020-06-26 07:37 | EKG ---
[facility] [address] [place] [address] Test Date: 2020-06-24 Test Time: 19:54:40 Pat Name: VADIM BAL Department: Room: Gender: F Web [employer] Specialist: : 1960 Requested By: ROQUE ESTES Order Number: [id number] Reading MD: Measurements Intervals [place] Rate: 61 P: 54 PA: 128 QRS: 62 QRSD: 74 T: 67 QT: 422 QTc: 426 Interpretive Statements SINUS RHYTHM NORMAL ECG RI6.02 Compared to ECG 06/24/2020 14:30:50 No significant changes
--- NOTE | 2020-06-29 10:50 | DS ---
DATE OF DISCHARGE: 06/25/2020 ADMISSION DIAGNOSIS: Chest pain. DISCHARGE DIAGNOSIS: Atypical chest pain. HOSPITAL COURSE: The patient is a pleasant middle-aged female who presented with chest pain. She was admitted. We checked serial enzymes, serial EKGs. We consulted Cardiology, did cardiac monitoring and over the next couple of days, she returned to her baseline. Cardiology felt like this was atypical and not cardiac in nature. It was probably GERD. We discharged to home. DISPOSITION: Home. ACTIVITY: As tolerated. DIET: Low sodium. MEDICATIONS: Please see the MRAD. TOTAL TIME: 33 minutes. ANNIEL Endy BROWN DO DR: ALTAGRACIA/maninder JOB#: [id number] / [id number]
== END 2020-06-25 14:52 | disposition home or self-care (01) ==
LOC: ER 14:23 → 2 NORTH 16:15
PROVIDERS: ADMIT Internal Medicine; ATTEND Internal Medicine
DX: R07.89 Other chest pain (principal); E78.00 Pure hypercholesterolemia, unspecified; I10 Essential (primary) hypertension; I25.2 Old myocardial infarction; F17.210 Nicotine dependence, cigarettes, uncomplicated; M54.5 Low back pain; R63.1 Polydipsia; E78.5 Hyperlipidemia, unspecified; Z98.51 Tubal ligation status
CPT/HCPCS: 36415; 71045; 72100; 73501; 76705; 80053; 80061; 80307; 81001; 82553; 83036; 83690; 83735; 83880; 84443; 84484; 85025; 85379; 85610; 85730; 93005; 99285; G0378; G0379